=== PATIENT | female | born 1955 | race Hispanic/Latino ===

== ENCOUNTER → 2019-05-28 | Outpatient (CLI) | payer OTHER | END | disposition home or self-care (01) | LOC: OIH 10:53 | PROVIDERS: ATTEND Internal Medicine | DX: I10 Essential (primary) hypertension (principal) | CPT/HCPCS: 71046 ==

== ENCOUNTER → 2021-06-10 | Outpatient (CLI) | payer OTHER | END | disposition home or self-care (01) | LOC: OIH 10:38 | PROVIDERS: ATTEND Internal Medicine | DX: M17.11 Unilateral primary osteoarthritis, right knee (principal); M25.461 Effusion, right knee; M79.89 Other specified soft tissue disorders | CPT/HCPCS: 73560 ==

== ENCOUNTER 2022-05-17 08:50 | Day surgery (SDC) | payer OTHER ==
[~2022-05-17] VITALS: Ht 157.5 cm; Wt 108.9 kg
[2022-05-17] VITALS (8 sets, daily range): BP systolic 136–157; BP diastolic 61–79
[~2022-05-17 08:50] MED LIST: AMLO-258 PO; ASPI-1197 PO; ATOR10TA69 PO; BIOT25008 PO; ESCI-8 PO; HYDR12.54 PO; INSLAN SQ; KETO5DRO82 OU; LEVO75CA5 PO; METF-446 PO; METO-408 PO; METO10TA3 PO; MULT-1258 PO; OLME40TA18 PO; PANT40TA54 PO
[2022-05-17 10:13] LABS: HEMATOCRIT 33.6 % (36-48); MEAN CORPUSCULAR HGB CONC 32.1 g/dL (32.0-36.0); MEAN CORPUSCULAR VOLUME 80.8 fL (79-99); PLATELET COUNT (AUTO) 266 K/uL (130-400); RED BLOOD CELL COUNT(AUTO) 4.16 MIL/uL (4.00-5.50); RED CELL DISTRIBUTION WIDTH 15.2 % (11.0-15.5); WHITE BLOOD COUNT (AUTO) 6.9 K/uL (4.8-10.8)
[2022-05-17 10:23] LABS: CREATININE 0.8 mg/dL (0.5-1.5); INR 0.95 (0.85-1.15); POTASSIUM 3.5 mmol/L (3.5-5.1); PROTHROMBIN TIME 10.4 SEC (9.6-11.6)
[2022-05-17 10:24] LABS: PARTIAL THROMBOPLASTIN TIME 27.9 SEC (26.3-35.5)
[2022-05-17] MEDS ORDERED: 0.9%NACL 1000ML 1,000 ML IV ONE (10:54)
[2022-05-17] MEDS ORDERED: PROPOFOL 10 MG/ML 20ML VIAL IV ONE ×2 (11:18→11:57)
[2022-05-17] MEDS ORDERED: LIDOCAINE HCL 1% 20 ML VIAL ONE (11:18)
[2022-05-17 11:20] LABS: EOSINOPHILS % (MANUAL) 3 % (1-6); LYMPHOCYTES % (MANUAL) 18 % (22-44); MONOCYTES % (MANUAL) 4 % (2-9); SEGMENTED NEUTROPHILS % 75 % (40-70)
[2022-05-17 11:21] LABS: MAN.DIFF COMMENT-IMPRESSION MANUAL DIFFERENTIAL
[2022-05-17 11:22] LABS: PLATELET MORPHOLOGY COMMENT ADEQUATE
[2022-05-17] MEDS ORDERED: LEVOFLOXACIN 500 MG/D5W 100 ML 100 ML ONE (12:01)
== END 2022-05-17 12:45 | disposition home or self-care (01) ==
LOC: ENDO 08:50 → DAH 08:50 → ENDO 12:45
PROVIDERS: ATTEND Internal Medicine Gastroenterology
DX: R93.3 Abnormal findings on diagnostic imaging of other parts of digestive tract (principal); K86.2 Cyst of pancreas; Z20.822 Contact with and (suspected) exposure to COVID-19; K21.9 Gastro-esophageal reflux disease without esophagitis; R97.0 Elevated carcinoembryonic antigen [CEA]; I10 Essential (primary) hypertension; E78.5 Hyperlipidemia, unspecified; E03.9 Hypothyroidism, unspecified; E66.01 Morbid (severe) obesity due to excess calories; F41.9 Anxiety disorder, unspecified; F32.A Depression, unspecified; E11.43 Type 2 diabetes mellitus with diabetic autonomic (poly)neuropathy; K31.84 Gastroparesis; Z88.6 Allergy status to analgesic agent; Z88.0 Allergy status to penicillin; Z79.890 Hormone replacement therapy; Z79.84 Long term (current) use of oral hypoglycemic drugs; Z79.82 Long term (current) use of aspirin; Z79.01 Long term (current) use of anticoagulants; Z86.010 Personal history of colon polyps; Z90.710 Acquired absence of both cervix and uterus; Z90.49 Acquired absence of other specified parts of digestive tract; Z98.891 History of uterine scar from previous surgery; Z90.89 Acquired absence of other organs; Z82.49 Family history of ischemic heart disease and other diseases of the circulatory system; Z68.41 Body mass index [BMI] 40.0-44.9, adult; Z79.899 Other long term (current) drug therapy
CPT/HCPCS: 87426; 43238; 82150; 80048; 85025; 85610; 85730; 82948; 36415; 82378; 93005; J1956; J7030 ×2; J2704 ×2; A4620; A4223; A4657; A7002; A4222; A4215